=== PATIENT | female | born 1960 | race Asian ===

== ENCOUNTER 2022-10-29 13:30 | Outpatient (CLI) | payer OTHER ==
[2022-10-29] MEDS ORDERED: Iopamidol 300 61% 100 ML VIAL FS ONE (14:03)
== END 2022-10-29 13:31 | disposition home or self-care (01) ==
LOC: CSHCT 13:30
PROVIDERS: ATTEND Family Medicine
DX: R10.31 Right lower quadrant pain (principal); N20.0 Calculus of kidney; R19.09 Other intra-abdominal and pelvic swelling, mass and lump; K76.9 Liver disease, unspecified; K59.00 Constipation, unspecified; Z90.710 Acquired absence of both cervix and uterus
CPT/HCPCS: 74178; 82565; Q9967